=== PATIENT | female | born 1975 | race Caucasian/White ===

== ENCOUNTER 2017-04-09 22:25 | Emergency (ER) | payer BC ==
[~2017-04-09] VITALS: Wt 95.5 kg
--- NOTE | 2017-04-10 00:02 | ERD ---
ER Documentation Chief Complaint Date/Time DATE: 04/09/17 TIME: 23:57 Chief Complaint Vaginal bleed x12 days with bilateral flank pain HPI 41-year-old female presents here in emergency department for complaint of a vaginal bleeding that started 12 days ago. Patient is complaining of pelvic pain and cramping pain, 4/10 scale, is accompanied the vaginal bleeding. Patient denies any fever or chills. Patient denies any hematuria or dysuria. Patient has had irregular periods before. Patient also is sexually active. Patient has a scheduled appointment with gynecology next month. ROS All systems reviewed and are negative except as per history of present illness. Medications Home Meds Reported Medications [none] Unknown Strength No Conflict Check 04/10/17 Allergies Allergies: Coded Allergies: No Known Allergy (Unverified , 04/09/17) PMhx/Soc Medical and Surgical Hx: pt denies Medical Hx, pt denies Surgical Hx History of Surgery: No Anesthesia Reaction: No Hx Neurological Disorder: No Hx Respiratory Disorders: No Hx Cardiac Disorders: No Hx Psychiatric Problems: No Hx Alcohol Use: No Hx Substance Use: No Smoking Status: Never smoker FmHx Family History: No coronary disease, No diabetes, No other Physical Exam Vitals Vital Signs Date Time Temp Pulse Resp B/P Pulse Ox O2 Delivery O2 Flow Rate FiO2 04/09/17 22:57 98.4 85 20 168/97 97 Physical Exam GENERAL: The patient is well developed and appropriate for usual state of health, in no apparent distress. CHEST: Clear to auscultation bilaterally. There are no rales, wheezes or rhonchi. HEART: Regular rate and rhythm. No murmurs, clicks, rubs or gallops. No S3 or S4. ABDOMEN: Soft, nontender and nondistended. Good bowel sounds. No rebound or guarding. No gross peritonitis. No gross organomegaly or masses. No Goodwin sign or McBurney point tenderness. BACK: No midline or flank tenderness. EXTREMITIES: Equal pulses bilaterally. There is no peripheral clubbing, cyanosis or edema. No focal swelling or erythema. Full range of motion. Grossly neurovascularly intact. NEURO: Alert and oriented. Cranial nerves 2-12 intact. Motor strength in all 4 extremities with 5/5 strength. Sensation grossly intact. Normal speech and gait. SKIN: There is no apparent rash or petechia. The skin is warm and dry. HEMATOLOGIC AND LYMPHATIC: There is no evidence of excessive bruising or lymphedema. No gross cervical, axillary, or inguinal lymphadenopathy. Result Diagram: 04/10/17 0010 04/10/17 0010 Results 24 hrs Laboratory Tests Test 04/10/17 00:10 04/10/17 00:11 White Blood Count 10.010^3/ul Red Blood Count 3.9910^6/ul Hemoglobin 11.7g/dl Hematocrit 35.0% Mean Corpuscular Volume 87.7fl Mean Corpuscular Hemoglobin 29.3pg Mean Corpuscular Hemoglobin Concent 33.4g/dl Red Cell Distribution Width 12.4% Platelet Count 71849^3/UL Mean Platelet Volume 11.0fl Neutrophils % 54.0% Lymphocytes % 39.3% Monocytes % 5.2% Eosinophils % 0.8% Basophils % 0.4% Nucleated Red Blood Cells % 0.0/100WBC Neutrophils # 5.410^3/ul Lymphocytes # 3.910^3/ul Monocytes # 0.510^3/ul Eosinophils # 0.110^3/ul Basophils # 0.010^3/ul Nucleated Red Blood Cells # 0.010^3/ul Sodium Level 140mmol/L Potassium Level 4.0mmol/L Chloride Level 106mmol/L Carbon Dioxide Level 25mmol/L Anion Gap 13 Blood Urea Nitrogen 13mg/dl Creatinine 0.70mg/dl Glucose Level 94mg/dl Calcium Level 9.7mg/dl Total Bilirubin 0.1mg/dl Direct Bilirubin 0.00mg/dl Indirect Bilirubin 0.1mg/dl Aspartate Amino Transf (AST/SGOT) 24IU/L Alanine Aminotransferase (ALT/SGPT) 30IU/L Alkaline Phosphatase 57IU/L Total Protein 7.7g/dl Albumin 4.6g/dl Globulin 3.10g/dl Albumin/Globulin Ratio 1.48 Beta HCG, Quantitative < 2.4mIU/ml Bedside Urine pH (LAB) 8.5 Bedside Urine Protein (LAB) 1+ Bedside Urine Glucose (UA) Negative Bedside Urine Ketones (LAB) Negative Bedside Urine Blood 2+ Bedside Urine Nitrite (LAB) Negative Bedside Urine Leukocyte Esterase (L Negative PROCEDURE: US Pelvis. CLINICAL INDICATION: Vaginal bleeding TECHNIQUE: Multiple sonographic images of the pelvis were obtained utilizing a transabdominal and endovaginal technique. The images were reviewed on a PACS workstation. COMPARISON: None available FINDINGS: Uterus: Normal in size, contour and echogenicity with no evidence for myometrial masses. Size is estimated at 8.6 x 7.3 x 4.7 cm. Cervix: No abnormalities of significance are seen. Endometrium: Normal in thickness for the patient's provided age and presumed premenopausal status; 13.8 mm. Right ovary / adnexa: Normal in size estimated at 2.1 x 1.5 x 1.3 cm. No evidence for masses, normal blood flow on Doppler interrogation. Left ovary/adnexa: Normal in size estimated at 4.2 x 3.6 x 3.5 cm. No evidence for solid masses, normal blood flow on Doppler interrogation. Simple anechoic cyst is present measuring 3.6 x 3.1 x 2.8 Cul-de-sac: No evidence of free fluid. RPTAT:HJJR IMPRESSION: 1. Endometrial thickness is believed to be within limits of normal for the patient's provided age and presumed premenopausal status. 2. No evidence of myometrial mass. 3. Simple anechoic left ovarian cyst of 3.6 cm. Physician Eric Date Time Electronically viewed and signed by Physician Eric on 04/10/2017 00:44 JR/ CC: MONY MCKEON [employer] Procedures/MDM Medical Decision Making: Patients vaginal bleeding is most likely consistent of dysfunctional uterine bleeding. Patient does not show any evidence of hypovolemic shock. Patients hemoglobin and hematocrit is stable. There is low suspicion for ectopic . KEM results show ovarian cyst incidental finding, and endometrial thickness. BetaHCG Quantitative is negative for There is no signs of symptoms of dehydration. There is low suspicion for sepsis. Patient appears well and is hemodynamically stable. Disposition: Home. Condition: Stable Prescription: Ferrous sulfate, Colace Instructions: Patient is advised to do bed rest, avoid heavy lifting, and avoid having sex until cleared by OB doctor. Patient is advised to follow up with OB doctor for further evaluation and possible treatment. Patient is advised that is symptoms are worst, severe bleeding, dizziness, severe abdominal pain, fever , worst signs and symptoms to return to the emergency department immediately. Departure Diagnosis: Primary Impression: Vaginal bleeding Additional Impression: Ovarian cyst Laterality: left Qualified Code: N83.202 - Cyst of left ovary Condition: Stable Patient Instructions: Ovarian Cyst Additional Instructions: Patient is advised to do bed rest, avoid heavy lifting, and avoid having sex until cleared by OB doctor. Patient is advised to follow up with OB doctor for further evaluation and possible treatment. Patient is advised that is symptoms are worst, severe bleeding, dizziness, severe abdominal pain, fever, worst signs and symptoms to return to the emergency department immediately. MONY MCKEON NP Apr 10, 2017 00:02
[2017-04-10 00:08] LABS: URINE BLOOD (Dip) POC 2+ (NEGATIVE)
[2017-04-10 00:29] LABS: ADD SCAN DIFF NO
[2017-04-10 00:32] LABS: BASOPHILS % 0.4 % (0.0-2.0); EOSINOPHILS # 0.1 10^3/ul (0.0-0.5); EOSINOPHILS % 0.8 % (0.0-7.0); HEMOGLOBIN 11.7 g/dl (12.0-16.0); LYMPHOCYTES # 3.9 10^3/ul (0.8-2.9); LYMPHOCYTES % 39.3 % (15.0-51.0); MEAN CORPUSCULAR HEMOGLOBIN 29.3 pg (29.0-33.0); MEAN CORPUSCULAR HGB CONC 33.4 g/dl (32.0-37.0); MEAN CORPUSCULAR VOLUME 87.7 fl (82.0-101.0); MONOCYTE # 0.5 10^3/ul (0.3-0.9); MONOCYTES % 5.2 % (0.0-11.0); NEUTROPHIL # 5.4 10^3/ul (1.6-7.5); PLATELET COUNT 300 10^3/UL (140-415); RED BLOOD COUNT 3.99 10^6/ul (4.20-5.40); RED CELL DISTRIBUTION WIDTH 12.4 % (11.5-14.5)
--- NOTE | 2017-04-10 00:45 | RADRPT ---
PROCEDURE: US Pelvis. CLINICAL INDICATION: Vaginal bleeding TECHNIQUE: Multiple sonographic images of the pelvis were obtained utilizing a transabdominal and endovaginal technique. The images were reviewed on a PACS workstation. COMPARISON: None available FINDINGS: Uterus: Normal in size, contour and echogenicity with no evidence for myometrial masses. Size is est imated at 8.6 x 7.3 x 4.7 cm. Cervix: No abnormalities of significance are seen. Endometrium: Normal in thickness for the patient's provided age and presumed premenopausal status; 13.8 mm. Right ovary / adnexa: Normal in size estimated at 2.1 x 1.5 x 1.3 cm. No evidence for masses, norm al blood flow on Doppler interrogation. Left ovary/adnexa: Normal in size estimated at 4.2 x 3.6 x 3.5 cm. No evidence for solid masses, no rmal blood flow on Doppler interrogation. Simple anechoic cyst is present measuring 3.6 x 3.1 x 2.8 Cul-de-sac: No evidence of free fluid. RPTAT:HJJR IMPRESSION: 1. Endometrial thickness is believed to be within limits of normal for the patient's provided age a nd presumed premenopausal status. 2. No evidence of myometrial mass. 3. Simple anechoic left ovarian cyst of 3.6 cm. Physician Eric Date Time Electronically viewed and signed by Physician Eric on 04/10/2017 00:44 /
[2017-04-10 00:58] LABS: ALBUMIN 4.6 g/dl (3.3-4.9); ALBUMIN/GLOBULIN RATIO 1.48; BILIRUBIN,INDIRECT 0.1 mg/dl (0-1.1); BILIRUBIN,TOTAL 0.1 mg/dl (0.2-1.3); CALCIUM 9.7 mg/dl (8.4-10.2); CREATININE 0.7 mg/dl (0.44-1.00); TOTAL PROTEIN 7.7 g/dl (6.1-8.1)
[2017-04-10] MEDS ORDERED: IBUP-1542 PO (01:38)
[2017-04-10] MEDS ORDERED: DOCU-144 PO (01:38)
[2017-04-10] MEDS ORDERED: FER325 PO (01:38)
[2017-04-10 03:18] LABS: ADD UMIC YES; UR ASCORBIC ACID 20 mg/dL (NEGATIVE); UR BILIRUBIN (Dip) NEGATIVE (NEGATIVE); UR BLOOD (Dip) 3+ mg/dL (NEGATIVE); UR CLARITY CLOUDY (CLEAR); UR COLOR YELLOW (YELLOW); UR GLUCOSE (Dip) NEGATIVE (NEGATIVE); UR KETONES (Dip) NEGATIVE (NEGATIVE); UR LEUKOCYTE ESTERASE (Dip) TRACE Leu/ul (NEGATIVE); UR NITRITE (Dip) NEGATIVE (NEGATIVE); UR RBC > 182 /HPF (0-5); UR SPECIFIC GRAVITY (Dip) 1.017 (1.003-1.030); UR TOTAL PROTEIN (Dip) NEGATIVE (NEGATIVE); UR UROBILINOGEN (Dip) NEGATIVE (NEGATIVE)
== END 2017-04-10 02:07 | disposition home or self-care (01) ==
LOC: FTE 22:25
DX: N93.9 Abnormal uterine and vaginal bleeding, unspecified (principal); N83.202 Unspecified ovarian cyst, left side; R10.2 Pelvic and perineal pain
CPT/HCPCS: 36415; 76830; 76856; 80053; 81001; 81003; 84702; 85025; 86850; 86900; 86901

== ENCOUNTER 2018-03-10 18:00 | Inpatient (IN) | END 2018-03-11 14:20 | disposition home or self-care (01) | DRG 742 ==

== ENCOUNTER 2018-07-14 23:58 | Emergency (ER) | END 2018-07-15 05:22 | disposition home or self-care (01) ==